=== PATIENT | male | born 1945 | race Hispanic/Latino ===

== ENCOUNTER → 2023-06-27 | Outpatient (REF) | payer MEDICARE ==
[~2023-06-27] MED LIST: IOPAMIDOL 370 MG/ML 100 ML INFUS..BTL INJ ONE
[2023-06-27 09:37] LABS: CREATININE, SERUM 0.87 mg/dL (0.72-1.25)
== END ==
LOC: CT 08:49
PROVIDERS: ATTEND Urology
DX: N28.1 Cyst of kidney, acquired (principal); D41.01 Neoplasm of uncertain behavior of right kidney
CPT/HCPCS: 36415; 74178; 82565; 84520; Q9967

== ENCOUNTER 2024-02-18 10:30 | Inpatient (IN) | payer MEDICARE ==
[2024-02-15 13:22] LABS: HEMATOCRIT 37.5 % (38.2-49.6); HEMOGLOBIN 12.1 g/dL (14.0-18.0); LYMPHOCYTES % 16.2 % (18.0-39.1); MEAN CORPUSCULAR HEMOGLOBIN 28.5 pg (28-32); MEAN CORPUSCULAR HGB CONC 32.3 g/dL (31-35); MEAN CORPUSCULAR VOLUME 88.4 fL (81-99); MONOCYTES % 8.3 % (4.4-11.3); NEUTROPHILS % 72.6 % (38.7-80.0); PLATELET COUNT 281 x10e3/uL (140-360); RED BLOOD COUNT 4.24 x10e6/uL (4.3-5.7); RED CELL DISTRIBUTION WIDTH 13.8 % (11.7-14.4); WHITE BLOOD COUNT 7.39 x10e3/uL (4.8-10.8)
[2024-02-15 13:23] LABS: BASOPHILS % 0.3 % (0.0-1.0); EOSINOPHILS # (AUTO) 0.2 (0.0-0.4); EOSINOPHILS % 2.2 % (0.0-6.0); LYMPHOCYTES # (AUTO) 1.2 (1.0-3.2); MONOCYTES # (AUTO) 0.6 (0.2-0.8); NEUTROPHILS # (AUTO) 5.4 (2.1-6.9)
[2024-02-15 13:33] LABS: CALCIUM 8.6 mg/dL (8.4-10.2); CREATININE, SERUM 0.87 mg/dL (0.72-1.25)
[2024-02-15 13:34] LABS: ALBUMIN 3.2 g/dL (3.5-5.0); ALBUMIN/GLOBULIN RATIO 0.8 (0.8-2.0); BILIRUBIN,TOTAL 0.5 mg/dL (0.2-1.2)
[~2024-02-18] VITALS: Ht 167.6 cm; Wt 94.8 kg
[~2024-02-18 10:30] MED LIST changes: +BENTYL10 MG/1 ML PO; +BISOPROLOL-HCT1 EACH PO; +COZAAR25 MG PO; +ELIQUIS2.5 MG PO; +FLOMAX0.4 MG PO; -IOPAMIDOL 370 MG/ML 100 ML INFUS..BTL INJ ONE; +LEXAPRO10 MG PO; +LISINOPRIL20 MG PO; +NEURONTIN100 MG PO; +OMEPRAZOLE40 MG PO; +PEPCID20 MG PO; +PRAVASTATIN SOD40 MG PO; +TRAZODONE HCL50 MG PO
[2024-02-18] MEDS ORDERED: BUPIVACAINE 0.25% 30ML SDV ONE (12:53)
[2024-02-18] MEDS ORDERED: FENTANYL CITRATE/PF 100MCG/2 ML INJ ONE ×2 (13:14→13:19)
[2024-02-18] MEDS ORDERED: MIDAZOLAM HCL 2 MG/2 ML VIAL ONE (13:19)
[2024-02-18] MEDS ORDERED: ACETAMINOPHEN 1000 MG/100 ML 100 ML IV ONE (13:20)
[2024-02-18] MEDS ORDERED: DIPHENHYDRAMINE HCL INJ 50 MG/ML VIAL IM PRN (16:15)
[2024-02-18] MEDS ORDERED: NALOXONE HCL INJ 0.4 MG/ML AMP IV PRN (16:15)
[2024-02-18] MEDS: MORPHINE SULFATE 1 MG/ML 30ML PCA IV PRN (16:41)
[2024-02-18] MEDS: FENTANYL CITRATE/PF 100MCG/2 ML INJ ONE (16:44)
[2024-02-18 16:46] LABS: BASOPHILS % 0.2 % (0.0-1.0); EOSINOPHILS # (AUTO) 0.1 (0.0-0.4); EOSINOPHILS % 0.5 % (0.0-6.0); HEMATOCRIT 35.4 % (38.2-49.6); HEMOGLOBIN 11.5 g/dL (14.0-18.0); LYMPHOCYTES # (AUTO) 1.2 (1.0-3.2); LYMPHOCYTES % 10.1 % (18.0-39.1); MEAN CORPUSCULAR HEMOGLOBIN 28.1 pg (28-32); MEAN CORPUSCULAR HGB CONC 32.5 g/dL (31-35); MEAN CORPUSCULAR VOLUME 86.6 fL (81-99); MONOCYTES # (AUTO) 0.6 (0.2-0.8); MONOCYTES % 4.5 % (4.4-11.3); NEUTROPHILS # (AUTO) 10.2 (2.1-6.9); NEUTROPHILS % 84.2 % (38.7-80.0); PLATELET COUNT 266 x10e3/uL (140-360); RED BLOOD COUNT 4.09 x10e6/uL (4.3-5.7); RED CELL DISTRIBUTION WIDTH 13.8 % (11.7-14.4); WHITE BLOOD COUNT 12.13 x10e3/uL (4.8-10.8)
[2024-02-18 17:22] LABS: ANION GAP 15.1 mmol/L (8-16); CALCIUM 8.1 mg/dL (8.4-10.2); CREATININE, SERUM 0.75 mg/dL (0.72-1.25); POTASSIUM 4.1 mmol/L (3.5-5.1)
[2024-02-18] MEDS: ONDANSETRON HCL INJ 2MG/ML 2ML 2 MG/ML VIAL IV PRN (17:40)
[2024-02-18] MEDS ORDERED: SEVOFLURANE INHAL SOLN 250 ML PEN BTL ONE (17:47)
[2024-02-18] MEDS ORDERED: ROCURONIUM BROMIDE 10 MG/ML 5ML VIAL IV ONE (17:47)
[2024-02-18] MEDS ORDERED: DEXAMETHASONE SOD PHOS INJ 4 MG/ML SDV ONE (17:47)
[2024-02-18] MEDS ORDERED: SUGAMMADEX SODIUM 200 MG/2 ML VIAL IV ONE (17:47)
[2024-02-18] MEDS ORDERED: PROPOFOL IV EMULSION 10 MG/ML 20 ML VIAL ONE (17:47)
[2024-02-18] MEDS ORDERED: ONDANSETRON HCL INJ 2MG/ML 2ML 2 MG/ML VIAL ONE (17:47)
[2024-02-18] MEDS ORDERED: LIDOCAINE HCL 2% LOCAL INJ 5 ML SDV VIAL INJ ONE (17:47)
[2024-02-18] MEDS ORDERED: DEXMEDETOMIDINE HCL 200 MCG/2 ML VIAL ONE (17:47)
[2024-02-18] MEDS ORDERED: ACETAMINOPHEN 1000 MG/100 ML IV ONE (17:47)
[2024-02-18] MEDS: METOCLOPRAMIDE HCL 10 MG/2ML VIAL ONE (17:49)
[2024-02-18 18:18] VITALS: BP 136/90; PULSE 110; RESP 20; TEMP 98.7; O2SAT 92
[2024-02-18 18:19] VITALS: BP 136/90; PULSE 110; RESP 20; TEMP 97.7
[2024-02-18 18:29] VITALS: BP 136/90; PULSE 110; RESP 20; TEMP 97.7; O2SAT 92
[2024-02-18] MEDS: CEFAZOLIN SODIUM 2 GM ONE (18:38)
[2024-02-18] MEDS: LACTATED RINGER'S 1,000 ML ONE (18:38)
[2024-02-18] MEDS: ACETAMINOPHEN 1000 MG/100 ML IV SCH (18:47)
[2024-02-18] MEDS: D5.45%NS/KCL 20MEQ 1,000 ML IV SCH (18:48)
[2024-02-18 20:00] VITALS: BP 116/85; PULSE 100; RESP 21; TEMP 98.4; O2SAT 98
[2024-02-18 20:07] VITALS: PULSE 90; RESP 19; O2SAT 96
[2024-02-18 21:30] VITALS: BP 116/85; PULSE 90; RESP 19; TEMP 98.4; O2SAT 96
[2024-02-18] MEDS: SODIUM CHLORIDE 0.9% 250ML IRRIG IR SCH (21:39)
[2024-02-19] VITALS (10 sets, daily range): BP systolic 103–118; BP diastolic 68–86; PULSE 67–105; RESP 17–22; TEMP 98–98.6; O2SAT 94–100
[2024-02-19 05:43] LABS: BASOPHILS % 0.1 % (0.0-1.0); HEMOGLOBIN 11.3 g/dL (14.0-18.0); LYMPHOCYTES # (AUTO) 0.7 (1.0-3.2); LYMPHOCYTES % 6.8 % (18.0-39.1); MEAN CORPUSCULAR HEMOGLOBIN 28.1 pg (28-32); MEAN CORPUSCULAR HGB CONC 32.3 g/dL (31-35); MEAN CORPUSCULAR VOLUME 87.1 fL (81-99); MONOCYTES # (AUTO) 0.8 (0.2-0.8); MONOCYTES % 7.4 % (4.4-11.3); NEUTROPHILS # (AUTO) 9.3 (2.1-6.9); NEUTROPHILS % 85.2 % (38.7-80.0); PLATELET COUNT 253 x10e3/uL (140-360); RED BLOOD COUNT 4.02 x10e6/uL (4.3-5.7); RED CELL DISTRIBUTION WIDTH 13.9 % (11.7-14.4); WHITE BLOOD COUNT 10.94 x10e3/uL (4.8-10.8)
[2024-02-19 06:13] LABS: ANION GAP 13.3 mmol/L (8-16); CALCIUM 7.7 mg/dL (8.4-10.2); CREATININE, SERUM 0.72 mg/dL (0.72-1.25); POTASSIUM 4.3 mmol/L (3.5-5.1)
[2024-02-19] MEDS ORDERED: PROCTOSOL-HC28.35 GM PR (08:45)
[2024-02-19] MEDS ORDERED: ALBUTEROL/IPRATROPIUM 3 ML NEB NEB PRN (13:30)
[2024-02-19] MEDS ORDERED: MELATONIN 3 MG TAB PO PRN (13:30)
[2024-02-19] MEDS ORDERED: METOPROLOL TARTRATE INJ 1 MG/ML VIAL IV PRN (13:30)
[2024-02-19] MEDS: PRAVASTATIN 20 MG TAB PO SCH (20:23)
[2024-02-19] MEDS: GABAPENTIN 100 MG CAP PO SCH (20:23)
[2024-02-20] VITALS (10 sets, daily range): BP systolic 116–139; BP diastolic 81–94; PULSE 64–184; RESP 17–20; TEMP 98–98.5; O2SAT 94–97
[2024-02-20 05:41] LABS: HEMOGLOBIN 11.5 g/dL (14.0-18.0); MEAN CORPUSCULAR HEMOGLOBIN 27.9 pg (28-32); MEAN CORPUSCULAR HGB CONC 31.9 g/dL (31-35); MEAN CORPUSCULAR VOLUME 87.4 fL (81-99); NEUTROPHILS % 78.7 % (38.7-80.0); PLATELET COUNT 270 x10e3/uL (140-360); RED BLOOD COUNT 4.12 x10e6/uL (4.3-5.7); RED CELL DISTRIBUTION WIDTH 14.1 % (11.7-14.4)
[2024-02-20 05:42] LABS: BASOPHILS % 0.3 % (0.0-1.0); EOSINOPHILS # (AUTO) 0.1 (0.0-0.4); EOSINOPHILS % 0.9 % (0.0-6.0); LYMPHOCYTES # (AUTO) 1.2 (1.0-3.2); LYMPHOCYTES % 12.1 % (18.0-39.1); MONOCYTES # (AUTO) 0.8 (0.2-0.8); MONOCYTES % 7.7 % (4.4-11.3)
[2024-02-20 06:12] LABS: ANION GAP 12.1 mmol/L (8-16); CALCIUM 7.8 mg/dL (8.4-10.2); CREATININE, SERUM 0.7 mg/dL (0.72-1.25); POTASSIUM 4.1 mmol/L (3.5-5.1)
[2024-02-20] MEDS: PANTOPRAZOLE SOD 40 MG TABEC PO SCH (09:00)
[2024-02-20] MEDS: TAMSULOSIN HCL 0.4 MG CAP PO SCH (09:00)
[2024-02-20] MEDS: ESCITALOPRAM OXALATE 10 MG TAB PO SCH (09:00)
[2024-02-20] MEDS: BISACODYL 10 MG SUPP PR ONE (16:48)
[2024-02-21] VITALS (12 sets, daily range): BP systolic 118–157; BP diastolic 81–112; PULSE 63–120; RESP 2–21; TEMP 97.8–99.8; O2SAT 91–96
[2024-02-21 05:41] LABS: BASOPHILS % 0.2 % (0.0-1.0); EOSINOPHILS # (AUTO) 0.1 (0.0-0.4); EOSINOPHILS % 0.7 % (0.0-6.0); HEMATOCRIT 37.2 % (38.2-49.6); HEMOGLOBIN 11.9 g/dL (14.0-18.0); LYMPHOCYTES % 10.1 % (18.0-39.1); MEAN CORPUSCULAR HEMOGLOBIN 27.9 pg (28-32); MEAN CORPUSCULAR VOLUME 87.3 fL (81-99); MONOCYTES # (AUTO) 0.8 (0.2-0.8); MONOCYTES % 8.2 % (4.4-11.3); NEUTROPHILS # (AUTO) 8.2 (2.1-6.9); NEUTROPHILS % 80.5 % (38.7-80.0); PLATELET COUNT 277 x10e3/uL (140-360); RED BLOOD COUNT 4.26 x10e6/uL (4.3-5.7); RED CELL DISTRIBUTION WIDTH 13.9 % (11.7-14.4); WHITE BLOOD COUNT 10.17 x10e3/uL (4.8-10.8)
[2024-02-21 06:12] LABS: ANION GAP 15.9 mmol/L (8-16); CALCIUM 7.9 mg/dL (8.4-10.2); CREATININE, SERUM 0.74 mg/dL (0.72-1.25); POTASSIUM 3.9 mmol/L (3.5-5.1)
[2024-02-22] VITALS (9 sets, daily range): BP systolic 119–132; BP diastolic 78–92; PULSE 63–109; RESP 18–20; TEMP 97.3–98.4; O2SAT 93–96
[2024-02-22 05:57] LABS: BASOPHILS % 0.2 % (0.0-1.0); EOSINOPHILS # (AUTO) 0.1 (0.0-0.4); EOSINOPHILS % 1.3 % (0.0-6.0); HEMATOCRIT 35.8 % (38.2-49.6); HEMOGLOBIN 11.3 g/dL (14.0-18.0); LYMPHOCYTES # (AUTO) 1.2 (1.0-3.2); LYMPHOCYTES % 13.1 % (18.0-39.1); MEAN CORPUSCULAR HEMOGLOBIN 27.6 pg (28-32); MEAN CORPUSCULAR HGB CONC 31.6 g/dL (31-35); MEAN CORPUSCULAR VOLUME 87.3 fL (81-99); MONOCYTES # (AUTO) 0.6 (0.2-0.8); NEUTROPHILS # (AUTO) 6.9 (2.1-6.9); NEUTROPHILS % 77.6 % (38.7-80.0); PLATELET COUNT 258 x10e3/uL (140-360); RED CELL DISTRIBUTION WIDTH 13.9 % (11.7-14.4); WHITE BLOOD COUNT 8.94 x10e3/uL (4.8-10.8)
[2024-02-22 06:15] LABS: ANION GAP 11.2 mmol/L (8-16); CALCIUM 8.4 mg/dL (8.4-10.2); CREATININE, SERUM 0.73 mg/dL (0.72-1.25); POTASSIUM 4.2 mmol/L (3.5-5.1)
[2024-02-22] MEDS ORDERED: BISACODYL 10 MG SUPP PR PRN (09:45)
[2024-02-22] MEDS: BISACODYL 10 MG SUPP PR ONE (10:25)
[2024-02-23] VITALS (10 sets, daily range): BP systolic 108–138; BP diastolic 87–97; PULSE 67–149; RESP 14–20; TEMP 97.7–98.2; O2SAT 92–98
[2024-02-23 06:45] LABS: BASOPHILS % 0.3 % (0.0-1.0); EOSINOPHILS # (AUTO) 0.3 (0.0-0.4); EOSINOPHILS % 2.9 % (0.0-6.0); HEMATOCRIT 40.1 % (38.2-49.6); HEMOGLOBIN 12.4 g/dL (14.0-18.0); LYMPHOCYTES # (AUTO) 1.7 (1.0-3.2); LYMPHOCYTES % 18.5 % (18.0-39.1); MEAN CORPUSCULAR HEMOGLOBIN 27.5 pg (28-32); MEAN CORPUSCULAR HGB CONC 30.9 g/dL (31-35); MEAN CORPUSCULAR VOLUME 88.9 fL (81-99); MONOCYTES # (AUTO) 0.8 (0.2-0.8); MONOCYTES % 8.7 % (4.4-11.3); NEUTROPHILS # (AUTO) 6.4 (2.1-6.9); NEUTROPHILS % 69.3 % (38.7-80.0); PLATELET COUNT 290 x10e3/uL (140-360); RED BLOOD COUNT 4.51 x10e6/uL (4.3-5.7); WHITE BLOOD COUNT 9.29 x10e3/uL (4.8-10.8)
[2024-02-23 06:59] LABS: ALBUMIN 3.1 g/dL (3.5-5.0); ALBUMIN/GLOBULIN RATIO 0.8 (0.8-2.0); ANION GAP 13.9 mmol/L (8-16); CALCIUM 8.8 mg/dL (8.4-10.2); CREATININE, SERUM 0.77 mg/dL (0.72-1.25); POTASSIUM 3.9 mmol/L (3.5-5.1)
[2024-02-23] MEDS: SIMETHICONE 80 MG CHEW PO PRN (18:38)
[2024-02-24] VITALS (45 sets, daily range): BP systolic 102–139; BP diastolic 69–105; PULSE 38–133; RESP 11–26; TEMP 97.7–98.6; O2SAT 91–100
[2024-02-24] MEDS: METOPROLOL TARTRATE INJ 1 MG/ML VIAL IV ONE (10:42)
[2024-02-24] MEDS ORDERED: AMIODARONE HCL 150 MG/100 ML BAG IV ONE (11:30)
[2024-02-24] MEDS: ENOXAPARIN SODIUM INJ 100 MG/ML SYR SC SCH (11:30)
[2024-02-24] MEDS ORDERED: AMIODARONE 900MG 900 MG in Premix Bag 1 BAG IV SCH (11:30)
[2024-02-24] MEDS: AMIODARONE HCL 150 MG in DEXTROSE 5% 100ML 100 ML IV SCH (12:17)
[2024-02-24] MEDS: AMIODARONE 900MG 500 ML IV SCH (12:27)
[2024-02-24] MEDS ORDERED: AMIODARONE HCL 150 MG in DEXTROSE 5% 100ML 100 ML IV SCH (13:15)
[2024-02-24 19:51] LABS: INR 1.13; PROTHROMBIN TIME 15.3 seconds (11.9-14.5)
[2024-02-24] MEDS: HEPARIN SOD (PORCINE) 5,000 UNIT/ML VIAL IV ONE (19:55)
[2024-02-24] MEDS: HEPARIN SOD/DEXTROSE 5% 25000 UNIT/250 ML BAG IV SCH (20:31)
[2024-02-24] MEDS: MUPIROCIN 2% OINT 22 GM TUBE TOP SCH (20:58)
[2024-02-25] VITALS (49 sets, daily range): BP systolic 112–159; BP diastolic 76–112; PULSE 47–129; RESP 12–28; TEMP 98.4–98.8; O2SAT 93–100
[2024-02-25] MEDS ORDERED: IPRATROPIUM BROMIDE 0.02% 2.5 ML NEB NEB PRN (09:45)
[2024-02-25 10:20] LABS: ANION GAP 11.3 mmol/L (8-16); BLOOD UREA NITROGEN < 5 mg/dL (7-26); CALCIUM 8.1 mg/dL (8.4-10.2); CARBON DIOXIDE 21 mmol/L (22-29); CHLORIDE 102 mmol/L (98-107); CREATININE, SERUM 0.67 mg/dL (0.72-1.25); EST GLOMERULAR FILTRATION RATE 97 ML/MIN (>=60); GLUCOSE 175 mg/dL (74-118); POTASSIUM 4.3 mmol/L (3.5-5.1); SODIUM 130 mmol/L (136-145)
[2024-02-25 10:27] LABS: BUN/CREATININE RATIO 7 (6-25)
[2024-02-25] MEDS: SENNA-S TABLET PO SCH (19:28)
[2024-02-25] MEDS: BISACODYL 10 MG SUPP PR PRN (19:28)
[2024-02-25] MEDS: METOPROLOL TARTRATE 25 MG TAB PO SCH (20:03)
[2024-02-26] VITALS (27 sets, daily range): BP systolic 113–141; BP diastolic 66–107; PULSE 63–117; RESP 15–28; TEMP 98.5–99; O2SAT 92–98
[2024-02-26 06:46] LABS: BASOPHILS % 0.2 % (0.0-1.0); EOSINOPHILS # (AUTO) 0.2 (0.0-0.4); EOSINOPHILS % 1.9 % (0.0-6.0); HEMATOCRIT 34.1 % (38.2-49.6); LYMPHOCYTES # (AUTO) 1.7 (1.0-3.2); LYMPHOCYTES % 14.8 % (18.0-39.1); MEAN CORPUSCULAR HEMOGLOBIN 27.8 pg (28-32); MEAN CORPUSCULAR HGB CONC 32.3 g/dL (31-35); MEAN CORPUSCULAR VOLUME 86.3 fL (81-99); MONOCYTES # (AUTO) 0.9 (0.2-0.8); MONOCYTES % 8.1 % (4.4-11.3); NEUTROPHILS # (AUTO) 8.4 (2.1-6.9); NEUTROPHILS % 74.5 % (38.7-80.0); PLATELET COUNT 250 x10e3/uL (140-360); RED BLOOD COUNT 3.95 x10e6/uL (4.3-5.7)
[2024-02-26 07:20] LABS: ALANINE AMINOTRANSFERASE 9 IU/L (0-55); ALBUMIN 2.8 g/dL (3.5-5.0); ALBUMIN/GLOBULIN RATIO 0.8 (0.8-2.0); ALKALINE PHOSPHATASE 73 IU/L (40-150); ANION GAP 12.2 mmol/L (8-16); BILIRUBIN,TOTAL 0.8 mg/dL (0.2-1.2); BLOOD UREA NITROGEN < 5 mg/dL (7-26); CALCIUM 8.4 mg/dL (8.4-10.2); CARBON DIOXIDE 23 mmol/L (22-29); CHLORIDE 102 mmol/L (98-107); CREATININE, SERUM 0.72 mg/dL (0.72-1.25); EST GLOMERULAR FILTRATION RATE 95 ML/MIN (>=60); GLUCOSE 136 mg/dL (74-118); POTASSIUM 4.2 mmol/L (3.5-5.1); SODIUM 133 mmol/L (136-145); TOTAL PROTEIN 6.3 g/dL (6.5-8.1)
[2024-02-26 07:26] LABS: BUN/CREATININE RATIO 7 (6-25)
[2024-02-26] MEDS: LOPERAMIDE HCL 2 MG CAP PO ONE (11:14)
[2024-02-26] MEDS: ACETAMINOPHEN/CODEINE 300MG - 30MG TAB PO PRN (14:38)
[2024-02-26] MEDS: METOPROLOL SUCCINATE 25 MG TAB XL PO SCH (16:20)
[2024-02-26] MEDS: AMIODARONE HCL 200 MG TAB PO SCH (16:20)
[2024-02-26] MEDS: APIXABAN 5 MG TABLET PO SCH (16:20)
[2024-02-26] MEDS: SACUBITRIL/VALSARTAN 24MG/26MG 1 EA TAB PO SCH (20:04)
[2024-02-27] VITALS (26 sets, daily range): BP systolic 102–145; BP diastolic 64–85; PULSE 62–82; RESP 18–30; TEMP 97.9–98.6; O2SAT 92–98
[2024-02-27] MEDS: SPIRONOLACTONE 25 MG TAB PO SCH (08:09)
[2024-02-27] MEDS ORDERED: CHOLESTYRAMINE 4 GM PACKET PO PRN (10:15)
[2024-02-27] MEDS: FLUTICASONE PROPIONATE NASAL SPRAY NS SCH (12:16)
[2024-02-28] VITALS (9 sets, daily range): BP systolic 112–141; BP diastolic 64–76; PULSE 65–76; RESP 12–20; TEMP 97.6–98.4; O2SAT 92–98
[2024-02-28 05:41] LABS: BASOPHILS % 0.3 % (0.0-1.0); EOSINOPHILS # (AUTO) 0.2 (0.0-0.4); EOSINOPHILS % 1.6 % (0.0-6.0); HEMATOCRIT 33.7 % (38.2-49.6); LYMPHOCYTES % 9.5 % (18.0-39.1); MEAN CORPUSCULAR HEMOGLOBIN 28.1 pg (28-32); MEAN CORPUSCULAR HGB CONC 32.6 g/dL (31-35); MEAN CORPUSCULAR VOLUME 86.2 fL (81-99); MONOCYTES # (AUTO) 0.9 (0.2-0.8); MONOCYTES % 8.7 % (4.4-11.3); NEUTROPHILS # (AUTO) 8.2 (2.1-6.9); NEUTROPHILS % 79.3 % (38.7-80.0); PLATELET COUNT 280 x10e3/uL (140-360); RED BLOOD COUNT 3.91 x10e6/uL (4.3-5.7); RED CELL DISTRIBUTION WIDTH 14.1 % (11.7-14.4); WHITE BLOOD COUNT 10.28 x10e3/uL (4.8-10.8)
[2024-02-28] MEDS: SODIUM CHLORIDE 0.9% 100 ML ONE (06:15)
[2024-02-28 06:22] LABS: BLOOD UREA NITROGEN < 5 mg/dL (7-26); CALCIUM 8.3 mg/dL (8.4-10.2); CARBON DIOXIDE 25 mmol/L (22-29); CHLORIDE 103 mmol/L (98-107); CREATININE, SERUM 0.65 mg/dL (0.72-1.25); EST GLOMERULAR FILTRATION RATE 98 ML/MIN (>=60); GLUCOSE 110 mg/dL (74-118); MAGNESIUM 1.7 MG/DL (1.3-2.1); SODIUM 135 mmol/L (136-145)
[2024-02-28 06:26] LABS: BUN/CREATININE RATIO 8 (6-25)
[2024-02-28] MEDS: SODIUM CHLORIDE 0.9% 250ML 250 ML ONE (13:57)
[2024-02-28] MEDS ORDERED: ONDANSETRON HCL 4 MG ORAL DISINTEGRATING TAB PO PRN (15:15)
== END 2024-02-28 17:11 | disposition home or self-care (01) | DRG 827 ==
LOC: OR 10:30 → PACU V 15:23 → MED/SURG3 18:15 → MED/SURG 02-24 08:29 → ICU 02-24 11:51 → MED/SURG 02-28 03:21
PROVIDERS: ADMIT Internal Medicine; ATTEND Internal Medicine
PROC: 0W9H00Z Drainage of Retroperitoneum with Drainage Device, Open Approach (ICD-10-PCS; principal; 2024-02-18 13:03)
DX: C48.0 Malignant neoplasm of retroperitoneum (principal); E87.1 Hypo-osmolality and hyponatremia; E87.20 Acidosis, unspecified; E83.51 Hypocalcemia; I10 Essential (primary) hypertension; D64.9 Anemia, unspecified; N40.0 Benign prostatic hyperplasia without lower urinary tract symptoms; I48.0 Paroxysmal atrial fibrillation; R73.03 Prediabetes; E66.9 Obesity, unspecified; Z68.33 Body mass index [BMI] 33.0-33.9, adult
CPT/HCPCS: 36415; 71045; 71046; 74018; 80048; 80053; 80061; 82948; 83036; 83735; 85025; 85610; 85730; 86850; 86900; 86920; 93005; 93306; 94799; 99252; J0690; J1100; J2001; J2250; J2270; J2405; J2765; J7050